=== PATIENT | male | born 1995 | race Caucasian/White ===

== ENCOUNTER 2020-11-29 16:14 | Emergency (ER) | payer OTHER, SELFPAY ==
[2020-11-29 16:15] VITALS: BP 126/90; PULSE 112; RESP 16; TEMP 36.9; O2SAT 98; BMI 22.2
[2020-11-29 16:30] VITALS: BP 123/66; PULSE 104; RESP 16; O2SAT 99
--- NOTE | 2020-11-29 16:35 | HMH.EDGENADL ---
ED Disposition Clinical Impression: Heroin overdose Qualifiers: Encounter type: initial encounter Injury intent: accidental or unintentional Qualified Code(s): T40.1X1A - Poisoning by heroin, accidental (unintentional), initial encounter Disposition: Home, Self-Care Condition on Discharge: Good Instructions: DI for Drug Overdose in Adults Referrals: PCP,No [Primary Care Provider] - - Critical Care Critical Care Time: No Attestation: On 11/29/20, the high probability of a clinically significant, sudden or life threatening deterioration of the following system(s) required my full and direct attention, intervention and personal management. The time I documented below is in addition to time spent performing reported procedures but includes the following listed in this critical care notation. Medical Decision Making - Osorio Inquiry Pt receiving controlled substance: No Vital Signs: 11/29/20 16:15 11/29/20 16:30 Temperature 98.4 F Temperature Source Oral Pulse Rate 104 H Pulse Rate [Radial] 112 H Respiratory Rate 16 16 Blood Pressure 123/66 Blood Pressure [Right Arm] 126/90 Blood Pressure Mean 85 Blood Pressure Mean [Right Arm] 102 Blood Pressure Position [Right Arm] Sitting 02 Sat by Pulse Oximetry 98 99 Oxygen Delivery Method Room Air - Lab Data Lab Results 11/29/20 16:58: WBC 13.0 H, RBC 4.58 L, Hgb 14.0 L, Hct 41.2 L, MCV 89.9, MCH 30.4, MCHC 33.9, RDW 13.6, Plt Count 328, MPV 7.6, Neut % (Auto) 84.7 H, Lymph % (Auto) 9.0 L, [place] % (Auto) 4.0, Eos % (Auto) 1.8, Baso % (Auto) 0.5, Neut # (Auto) 11.0 H, Lymph # (Auto) 1.2, [place] # (Auto) 0.5, Eos # (Auto) 0.2, Baso # (Auto) 0.1 11/29/20 16:58: Sodium 141, Potassium 3.3 L, Chloride 104, Carbon Dioxide 28, Anion Gap 12.3, BUN 17, Creatinine 1.10, Estimated Creat Clear 101, Estimated GFR 81, Est GFR ( Amer) 98, Glucose 74, Calcium 9.5, Total Bilirubin 0.4, AST 90 H, ALT 68, Alkaline Phosphatase 110, Total Protein 7.1, Albumin 4.8, Globulin 2.3, Albumin/Globulin Ratio 2.1 H Result diagrams: 11/29/20 16:58 11/29/20 16:58 Orders (Tests/Meds): ORDERS Category Date Time Status Drug Screen,Urine Stat Lab 11/29/20 16:47 Ordered - Reevaluation(s) Time: 18:12 Reevaluation #1: 2 hours after arrival the patient is awake, alert, has eaten a meal, and is insisting on discharge. General Adult HPI - General Chief complaint: Overdose Stated complaint: od Time Seen by Provider: 11/29/20 16:30 Mode of Arrival: EMS Limitations: No Limitations Description of Symptoms (Recalled from ER Triage Doc. by RN): TO ED PER [facility] PT FOUND UNRESPONSIVE POLICE AT SCENE USED STERNAL RUB AND PT WAS AWAKE WHEN EMS ARRIVED. EMS GAVE 1MG NASAL NARCAN AT SCENE. PT STATES HE DOESN'T KNOW WHAT HAPPENED, DENIES DRUG USE. PT AWAKE ALERT AND ORIENTED - History of Present Illness HPI narrative: Brought in by ambulance along with his girlfriend, both with apparent overdose. The patient's girlfriend admits to snorting heroin. The patient says he does not remember doing any drugs. He says he was washing dishes with his girlfriend and the next thing he knew he woke up on the floor. 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 He now complains that he feels a little tired but otherwise denies complaint. He admits that he has dabbled in heroin and admits to using marijuana. Denies alcohol use. States he is on no prescription medications. - Related Data Home Medications Medication Instructions Recorded Confirmed No Known Home Medications 11/29/20 11/29/20 Allergies Allergy/AdvReac Type Severity Reaction Status Date / Time PCN Allergy Unknown Uncoded 08/22/17 14:[address] 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
[2020-11-29 17:05] LABS: Basophils # 0.1 K/mm3 (0-0.2); Basophils % 0.5 % (0.1-2.0); Eosinophils # 0.2 K/mm3 (0.0-0.4); Eosinophils % 1.8 % (0.1-12.0); Hematocrit 41.2 % (42.0-52.0); Lymphocytes # 1.2 K/mm3 (0.7-4.5); Mean Corpuscular HGB Conc 33.9 g/dL (31.8-35.4); Mean Corpuscular Hemoglobin 30.4 pg (27.0-31.2); Mean Corpuscular Volume 89.9 fl (80-94); Mean Platelet Volume 7.6 fl (7.4-10.4); Monocytes # 0.5 K/mm3 (0.1-1.0); Neutrophils % 84.7 % (37.0-80.0); Platelet Count 328 K/mm3 (142-424); Red Blood Count 4.58 M/mm3 (4.60-6.20); Red Cell Distribution Width 13.6 % (11.5-17.5)
[2020-11-29 17:09] LABS: Chloride 104 mmol/L (98-107); Potassium 3.3 mmoL/L (3.5-5.1); Sodium 141 mmol/L (136-145)
[2020-11-29 17:11] LABS: Blood Urea Nitrogen 17 mg/dl (9-20); Creatinine Clearance Estimated 101 mL/min (50-200); Estimated Glomerular Filt Rate 81 ml/min (>60); GFR (African American) 98 ML/MIN (>60)
[2020-11-29 17:12] LABS: Alanine Aminotransferase 68 U/L (12-78); Albumin Level 4.8 g/dl (3.5-5.0); Albumin/Globulin Ratio 2.1 (1.1-1.8); Alkaline Phosphatase 110 U/L (38-126); Anion Gap 12.3 mEq/L (5-15); Aspartate Amino Transferase 90 U/L (17-59); Bilirubin,Total 0.4 mg/dl (0.2-1.3); Calcium 9.5 mg/dl (8.4-10.2); Carbon Dioxide 28 mmol/L (22.0-30.0); Globulin 2.3 g/dL (1.3-3.2); Glucose 74 mg/dl (74-100); Total Protein,Serum 7.1 g/dl (6.3-8.2)
--- NOTE | 2020-11-29 17:47 | PC.NURSE ---
pt states he is still unable to provide a urine sample
[2020-11-29 18:21] VITALS: BP 126/83; PULSE 102; RESP 20; TEMP 36.6; O2SAT 98
== END 2020-11-29 18:22 | disposition home or self-care (01) ==
PROVIDERS: Emergency Provider Emergency Medicine
DX: T40.1X1A Poisoning by heroin, accidental (unintentional), initial encounter (principal); F12.10 Cannabis abuse, uncomplicated; Z88.0 Allergy status to penicillin
CPT/HCPCS: 80053; 85025; 99282